=== PATIENT | male | born 1945 | race Asian ===

== ENCOUNTER → 2018-04-07 | Outpatient (CLI) | payer MEDICARE, MEDICAID ==
[~2018-04-07] MED LIST: FLUO-126 PO; FLUT16H NASAL; OLAN7.5T2 PO
== END | disposition home or self-care (01) ==
LOC: RADPV 11:30
PROVIDERS: ATTEND Internal Medicine
DX: J43.9 Emphysema, unspecified (principal); R91.1 Solitary pulmonary nodule; I70.0 Atherosclerosis of aorta; Z87.891 Personal history of nicotine dependence

== ENCOUNTER → 2018-08-10 | Outpatient (CLI) | payer MEDICARE, MEDICAID | END | disposition home or self-care (01) | LOC: RADPV 12:03 | PROVIDERS: ATTEND Internal Medicine | DX: R91.1 Solitary pulmonary nodule (principal) ==

== ENCOUNTER → 2018-09-01 | Outpatient (CLI) | payer MEDICARE, MEDICAID ==
[~2018-09-01] MED LIST changes: +IOVERSOL 320 MG/ML 100 ML VIAL ONE; +SODIUM CHLORIDE 0.9% 100 ML ONE
== END | disposition home or self-care (01) ==
LOC: RADMN 09:15
PROVIDERS: ATTEND Internal Medicine
DX: I70.0 Atherosclerosis of aorta (principal); J98.11 Atelectasis; J44.9 Chronic obstructive pulmonary disease, unspecified
CPT/HCPCS: 71260; J7050; Q9967

== ENCOUNTER → 2018-10-29 | Outpatient (CLI) | payer MEDICARE, MEDICAID ==
[~2018-10-29] MED LIST changes: -IOVERSOL 320 MG/ML 100 ML VIAL ONE; -SODIUM CHLORIDE 0.9% 100 ML ONE
== END | disposition home or self-care (01) ==
LOC: RADPV 08:56
PROVIDERS: ATTEND Internal Medicine
DX: K76.89 Other specified diseases of liver (principal)
CPT/HCPCS: 76700

== ENCOUNTER → 2019-01-28 | Outpatient (CLI) | payer MEDICARE, MEDICAID ==
[~2019-01-28] MED LIST changes: +IOVERSOL 350 MG/ML 100 ML VIAL ONE; +SODIUM CHLORIDE 0.9% 100 ML ONE
== END | disposition home or self-care (01) ==
LOC: RADMN 10:14
PROVIDERS: ATTEND Internal Medicine
DX: J47.9 Bronchiectasis, uncomplicated (principal)
CPT/HCPCS: 71260; J7050; Q9967

== ENCOUNTER 2019-06-17 09:47 | Emergency (ER) | payer MEDICARE, MEDICAID ==
[~2019-06-17] VITALS: Ht 167.6 cm; Wt 70.0 kg
[~2019-06-17 09:47] MED LIST changes: -FLUO-126 PO; +FLUO20CA36 PO; -IOVERSOL 350 MG/ML 100 ML VIAL ONE; -SODIUM CHLORIDE 0.9% 100 ML ONE
[2019-06-17 10:55] LABS: BASOPHILS % (AUTO) 1.2 % (0.0-2.0); EOSINOPHILS % (AUTO) 1.4 % (1.0-6.0); HEMATOCRIT 43.4 % (41-53); HEMOGLOBIN 14.3 g/dL (13.5-17.5); LYMPHOCYTES % (AUTO) 32.3 % (22.0-44.0); MEAN CORPUSCULAR HEMOGLOBIN 31.4 pg (26.0-34.0); MEAN CORPUSCULAR HGB CONC 32.9 G/dL (31.0-37.0); MEAN CORPUSCULAR VOLUME 96 fL (80-100); MONOCYTES # (AUTO) 0.3 K/uL (0.1-1.0); MONOCYTES % (AUTO) 9.1 % (2.0-9.0); NEUTROPHILS # (AUTO) 1.7 K/uL (1.8-7.7); PLATELET COUNT (AUTO) 202 K/uL (150-450); RED BLOOD CELL COUNT(AUTO) 4.54 MIL/uL (4.50-5.90); RED CELL DISTRIBUTION WIDTH 13.3 % (11.5-14.5)
[2019-06-17 11:08] LABS: ANION GAP 3 mmol/L (8-16); CALCIUM, TOTAL 9.1 mg/dL (8.8-10.5); CARBON DIOXIDE 31 mmol/L (22-29); CHLORIDE 102 mmol/L (98-107); CREATININE 0.93 mg/dL (0.60-1.30); GLOMERULAR FILTR. RATE CALC > 60 mL/min (>60); GLUCOSE,RANDOM 140 mg/dL (70-110); POTASSIUM 3.9 mmol/L (3.5-5.1); SODIUM SERUM 136 mmol/L (136-145); UREA NITROGEN, BLOOD 10 mg/dL (7-18)
[2019-06-17 11:15] LABS: ALANINE AMINOTRANSFERASE 20 U/L (12-78); ALBUMIN 3.7 g/dL (3.4-5.0); ALKALINE PHOSPHATASE 54 U/L (46-116); ASPARTATE AMINOTRANSFERASE 16 U/L (15-37); BILIRUBIN,TOTAL 1.6 mg/dL (0.1-1.0); TOTAL PROTEIN, SERUM 7.1 g/dL (6.4-8.2)
[2019-06-17] MEDS ORDERED: ACETAMINOPHEN 500 MG TABLET PO ONE (11:30)
[2019-06-17 11:49] LABS: AMPHET/METH SCREEN,URINE NEGATIVE (NEGATIVE); BARBITURATE SCREEN, URINE NEGATIVE (NEGATIVE); BENZODIAZEPINES SCREEN,URINE NEGATIVE (NEGATIVE); CANNABINOID SCREEN,URINE NEGATIVE (NEGATIVE); COCAINE SCREEN,URINE NEGATIVE (NEGATIVE); METHADONE SCREEN, URINE NEGATIVE (NEGATIVE); OPIATE SCREEN,URINE NEGATIVE (NEGATIVE)
[2019-06-17 11:53] LABS: PHENCYCLIDINE SCREEN,URINE NEGATIVE (NEGATIVE)
[2019-06-17 12:34] VITALS: BP 117/70
== END 2019-06-17 12:50 | disposition home or self-care (01) ==
LOC: EMS 09:51
DX: M79.675 Pain in left toe(s) (principal); E11.9 Type 2 diabetes mellitus without complications; F32.9 Major depressive disorder, single episode, unspecified
CPT/HCPCS: 36415; 73660; 80053; 80307; 85025; 99284; G0480

== ENCOUNTER 2019-07-07 10:47 | Emergency (ER) | payer MEDICARE, MEDICAID ==
[~2019-07-07] VITALS: Ht 167.6 cm; Wt 76.8 kg
[2019-07-07] MEDS ORDERED: MECLIZINE HCL 25 MG TABLET PO ONE (11:30)
[2019-07-07 11:48] LABS: EOSINOPHILS % (AUTO) 1.5 % (1.0-6.0); HEMATOCRIT 41.8 % (41-53); HEMOGLOBIN 13.7 g/dL (13.5-17.5); LYMPHOCYTES % (AUTO) 36.7 % (22.0-44.0); MEAN CORPUSCULAR HEMOGLOBIN 31.2 pg (26.0-34.0); MEAN CORPUSCULAR HGB CONC 32.8 G/dL (31.0-37.0); MEAN CORPUSCULAR VOLUME 95 fL (80-100); MONOCYTES # (AUTO) 0.3 K/uL (0.1-1.0); MONOCYTES % (AUTO) 12.7 % (2.0-9.0); NEUTROPHILS # (AUTO) 1.3 K/uL (1.8-7.7); NEUTROPHILS % (AUTO) 48.1 % (40.0-70.0); PLATELET COUNT (AUTO) 200 K/uL (150-450); RED CELL DISTRIBUTION WIDTH 13.2 % (11.5-14.5)
[2019-07-07 11:50] LABS: GLUCOSE,POINT OF CARE 115 MG/DL (70-110)
[2019-07-07 12:00] LABS: ANION GAP 7 mmol/L (8-16); CALCIUM, TOTAL 8.9 mg/dL (8.8-10.5); CARBON DIOXIDE 29 mmol/L (22-29); CHLORIDE 105 mmol/L (98-107); CREATININE 0.77 mg/dL (0.60-1.30); GLUCOSE,RANDOM 99 mg/dL (70-110); POTASSIUM 3.8 mmol/L (3.5-5.1); SODIUM SERUM 141 mmol/L (136-145); UREA NITROGEN, BLOOD 16 mg/dL (7-18)
[2019-07-07 12:02] LABS: GLOMERULAR FILTR. RATE CALC > 60 mL/min (>60)
[2019-07-07 12:12] LABS: ALANINE AMINOTRANSFERASE 27 U/L (12-78); ALBUMIN 3.8 g/dL (3.4-5.0); ALKALINE PHOSPHATASE 52 U/L (46-116); ASPARTATE AMINOTRANSFERASE 18 U/L (15-37); BILIRUBIN,TOTAL 2.4 mg/dL (0.1-1.0); TOTAL PROTEIN, SERUM 6.9 g/dL (6.4-8.2)
[2019-07-07 13:00] VITALS: BP 112/79
== END 2019-07-07 13:02 | disposition home or self-care (01) ==
LOC: EMS 10:49
DX: R42 Dizziness and giddiness (principal); E11.9 Type 2 diabetes mellitus without complications; F32.9 Major depressive disorder, single episode, unspecified; Z79.899 Other long term (current) drug therapy

== ENCOUNTER 2019-07-08 09:40 | Emergency (ER) | payer MEDICARE, MEDICAID ==
[~2019-07-08] VITALS: Ht 165.1 cm; Wt 61.4 kg
[2019-07-08 09:42] VITALS: BP 118/76
[2019-07-08 14:06] LABS: GLUCOSE,POINT OF CARE 113 MG/DL (70-110)
== END 2019-07-08 11:03 | disposition home or self-care (01) ==
LOC: EMS 09:41
DX: Z76.0 Encounter for issue of repeat prescription (principal); R42 Dizziness and giddiness; F32.9 Major depressive disorder, single episode, unspecified; E11.9 Type 2 diabetes mellitus without complications

== ENCOUNTER 2019-07-26 13:55 | Emergency (ER) | payer MEDICARE, MEDICAID ==
[~2019-07-26] VITALS: Ht 167.6 cm; Wt 64.1 kg
[2019-07-26 13:56] VITALS: BP 98/58
[2019-07-26 14:14] LABS: GLUCOSE,POINT OF CARE 121 MG/DL (70-110)
== END 2019-07-26 16:41 | disposition left against medical advice (07) ==
LOC: EMS 13:58
DX: R51 Headache (principal); Z53.21 Procedure and treatment not carried out due to patient leaving prior to being seen by health care provider

== ENCOUNTER 2019-07-28 14:26 | Emergency (ER) | payer MEDICARE, MEDICAID ==
[~2019-07-28] VITALS: Ht 167.6 cm; Wt 61.4 kg
[2019-07-28] MEDS ORDERED: MECLIZINE HCL 25 MG TABLET PO ONE (16:15)
[2019-07-28 16:21] LABS: BASOPHILS % (AUTO) 0.8 % (0.0-2.0); EOSINOPHILS % (AUTO) 0.5 % (1.0-6.0); HEMOGLOBIN 13.9 g/dL (13.5-17.5); LYMPHOCYTES # (AUTO) 0.9 K/uL (1.0-4.8); MEAN CORPUSCULAR HEMOGLOBIN 31.8 pg (26.0-34.0); MEAN CORPUSCULAR HGB CONC 33.1 G/dL (31.0-37.0); MEAN CORPUSCULAR VOLUME 96 fL (80-100); MONOCYTES # (AUTO) 0.3 K/uL (0.1-1.0); MONOCYTES % (AUTO) 9.6 % (2.0-9.0); NEUTROPHILS # (AUTO) 2.1 K/uL (1.8-7.7); NEUTROPHILS % (AUTO) 63.1 % (40.0-70.0); PLATELET COUNT (AUTO) 177 K/uL (150-450); RED BLOOD CELL COUNT(AUTO) 4.38 MIL/uL (4.50-5.90)
[2019-07-28 16:32] LABS: ANION GAP 6 mmol/L (8-16); CALCIUM, TOTAL 9.2 mg/dL (8.8-10.5); CARBON DIOXIDE 31 mmol/L (22-29); CHLORIDE 104 mmol/L (98-107); CREATININE 0.79 mg/dL (0.60-1.30); GLOMERULAR FILTR. RATE CALC > 60 mL/min (>60); GLUCOSE,RANDOM 97 mg/dL (70-110); SODIUM SERUM 141 mmol/L (136-145); UREA NITROGEN, BLOOD 16 mg/dL (7-18)
[2019-07-28 16:39] LABS: ALANINE AMINOTRANSFERASE 19 U/L (12-78); ALBUMIN 4.1 g/dL (3.4-5.0); ALKALINE PHOSPHATASE 51 U/L (46-116); ASPARTATE AMINOTRANSFERASE 18 U/L (15-37); TOTAL PROTEIN, SERUM 7.4 g/dL (6.4-8.2)
[2019-07-28 17:10] LABS: APPEARANCE,URINE CLEAR (CLEAR); BILIRUBIN,URINE NEGATIVE (NEGATIVE); GLUCOSE, URINE (UA) NEGATIVE (NEGATIVE); KETONES,URINE NEGATIVE (NEGATIVE); LEUKOCYTE ESTERASE ,URINE NEGATIVE (NEGATIVE); NITRATE,URINE NEGATIVE (NEGATIVE); OCCULT BLOOD,URINE NEGATIVE (NEGATIVE); PH,URINE 6.5 (5.0-8.0); PROTEIN,URINE NEGATIVE (NEGATIVE)
[2019-07-28 17:17] LABS: BACTERIA,URINE Rare /HPF (None Seen); RBC,URINE 0-2 /HPF (0-2); SQUAMOUS EPITHELIAL CELL,UR Rare /LPF (None Seen); WBC,URINE None Seen /HPF (0-5)
[2019-07-28 17:57] VITALS: BP 135/78
== END 2019-07-28 18:30 | disposition home or self-care (01) ==
LOC: EMS 14:33
DX: R42 Dizziness and giddiness (principal); F32.9 Major depressive disorder, single episode, unspecified; E11.9 Type 2 diabetes mellitus without complications
CPT/HCPCS: 70450; 93005

== ENCOUNTER 2020-05-29 10:29 | Emergency (ER) | payer MEDICARE, MEDICAID ==
[~2020-05-29] VITALS: Ht 162.6 cm; Wt 54.5 kg
[~2020-05-29 10:29] MED LIST changes: +ASPI-1450 PO; -FLUT16H NASAL; +TAMS-13 PO
[2020-05-29 12:36] LABS: BASOPHILS % (AUTO) 1.1 % (0.0-2.0); EOSINOPHILS % (AUTO) 0.3 % (1.0-6.0); HEMATOCRIT 40.2 % (41-53); HEMOGLOBIN 13.4 g/dL (13.5-17.5); LYMPHOCYTES # (AUTO) 0.6 K/uL (1.0-4.8); LYMPHOCYTES % (AUTO) 26.9 % (22.0-44.0); MEAN CORPUSCULAR HGB CONC 33.4 G/dL (31.0-37.0); MEAN CORPUSCULAR VOLUME 96 fL (80-100); MONOCYTES # (AUTO) 0.3 K/uL (0.1-1.0); MONOCYTES % (AUTO) 14.6 % (2.0-9.0); NEUTROPHILS # (AUTO) 1.2 K/uL (1.8-7.7); NEUTROPHILS % (AUTO) 57.1 % (40.0-70.0); PLATELET COUNT (AUTO) 170 K/uL (150-450); RED BLOOD CELL COUNT(AUTO) 4.19 MIL/uL (4.50-5.90)
[2020-05-29 12:44] LABS: ANION GAP 6 mmol/L (8-16); CALCIUM, TOTAL 8.9 mg/dL (8.8-10.5); CARBON DIOXIDE 30 mmol/L (22-29); CHLORIDE 103 mmol/L (98-107); CREATININE 0.86 mg/dL (0.60-1.30); GLUCOSE,RANDOM 128 mg/dL (70-110); SODIUM SERUM 139 mmol/L (136-145); UREA NITROGEN, BLOOD 15 mg/dL (7-18)
[2020-05-29 12:49] LABS: ALANINE AMINOTRANSFERASE 26 U/L (12-78); ALBUMIN 4.2 g/dL (3.4-5.0); ALKALINE PHOSPHATASE 59 U/L (46-116); ASPARTATE AMINOTRANSFERASE 21 U/L (15-37); BILIRUBIN,TOTAL 0.8 mg/dL (0.1-1.0); TOTAL PROTEIN, SERUM 7.1 g/dL (6.4-8.2)
[2020-05-29 12:53] LABS: GLOMERULAR FILTR. RATE CALC > 60 mL/min (>60)
[2020-05-29 14:12] VITALS: BP 110/70
== END 2020-05-29 14:44 | disposition home or self-care (01) ==
LOC: EMS 11:01
DX: U07.1 COVID-19 (principal); R51.9 Headache, unspecified; R42 Dizziness and giddiness; F32.9 Major depressive disorder, single episode, unspecified; E11.9 Type 2 diabetes mellitus without complications; Z79.82 Long term (current) use of aspirin
CPT/HCPCS: 70450; 82948; 93005; 99285; 71045-TC

== ENCOUNTER 2020-06-14 11:11 | Emergency (ER) | payer MEDICARE, MEDICAID ==
[~2020-06-14] VITALS: Ht 167.6 cm; Wt 61.4 kg
[2020-06-14 11:21] VITALS: BP 120/75
== END 2020-06-14 12:36 | disposition home or self-care (01) ==
LOC: EMS 11:39
DX: B35.1 Tinea unguium (principal)
CPT/HCPCS: 99281; Z7502

== ENCOUNTER 2020-07-12 10:51 | Emergency (ER) | payer MEDICARE, MEDICAID ==
[~2020-07-12] VITALS: Ht 160 cm; Wt 56.8 kg
[2020-07-12] MEDS ORDERED: IBUPROFEN 800 MG TABLET PO ONE (12:30)
[2020-07-12 12:42] LABS: BASOPHILS % (AUTO) 0.9 % (0.0-2.0); EOSINOPHILS % (AUTO) 0.5 % (1.0-6.0); HEMATOCRIT 37.6 % (41-53); HEMOGLOBIN 12.6 g/dL (13.5-17.5); LYMPHOCYTES # (AUTO) 0.9 K/uL (1.0-4.8); LYMPHOCYTES % (AUTO) 27.5 % (22.0-44.0); MEAN CORPUSCULAR HEMOGLOBIN 32.1 pg (26.0-34.0); MEAN CORPUSCULAR HGB CONC 33.6 G/dL (31.0-37.0); MEAN CORPUSCULAR VOLUME 95 fL (80-100); MONOCYTES # (AUTO) 0.3 K/uL (0.1-1.0); NEUTROPHILS # (AUTO) 2.2 K/uL (1.8-7.7); NEUTROPHILS % (AUTO) 63.1 % (40.0-70.0); PLATELET COUNT (AUTO) 178 K/uL (150-450); RED BLOOD CELL COUNT(AUTO) 3.94 MIL/uL (4.50-5.90); RED CELL DISTRIBUTION WIDTH 13.7 % (11.5-14.5)
[2020-07-12 12:56] LABS: ANION GAP 8 mmol/L (8-16); CALCIUM, TOTAL 8.8 mg/dL (8.8-10.5); CARBON DIOXIDE 28 mmol/L (22-29); CHLORIDE 107 mmol/L (98-107); CREATININE 0.74 mg/dL (0.60-1.30); GLUCOSE,RANDOM 97 mg/dL (70-110); POTASSIUM 3.9 mmol/L (3.5-5.1); SODIUM SERUM 143 mmol/L (136-145); UREA NITROGEN, BLOOD 15 mg/dL (7-18)
[2020-07-12 13:01] LABS: ALANINE AMINOTRANSFERASE 32 U/L (12-78); ALBUMIN 3.7 g/dL (3.4-5.0); ALKALINE PHOSPHATASE 58 U/L (46-116); ASPARTATE AMINOTRANSFERASE 22 U/L (15-37); BILIRUBIN,TOTAL 1.9 mg/dL (0.1-1.0); TOTAL PROTEIN, SERUM 6.9 g/dL (6.4-8.2)
[2020-07-12 13:02] LABS: GLOMERULAR FILTR. RATE CALC > 60 mL/min (>60)
[2020-07-12 13:45] VITALS: BP 124/74
== END 2020-07-12 14:00 | disposition home or self-care (01) ==
LOC: EMS 10:57
DX: R51.9 Headache, unspecified (principal); J06.9 Acute upper respiratory infection, unspecified
CPT/HCPCS: 99284; 36415-L1; 36415-TC; 71045-TC

== ENCOUNTER 2023-01-24 13:46 | Emergency (ER) | payer MEDICARE, MEDICAID ==
[~2023-01-24] VITALS: Ht 170.2 cm; Wt 61.4 kg
[~2023-01-24 13:46] MED LIST changes: +FINA-27 PO; +MECL-302 PO; -OLAN7.5T2 PO; +OLAN7.5T22 PO; -TAMS-13 PO
[2023-01-24 13:51] VITALS: BP 126/55; PULSE 75; RESP 16; TEMP 98.3
[2023-01-24] MEDS ORDERED: IBUP-1554 PO (15:51)
[2023-01-24] MEDS ORDERED: IBUPROFEN 600 MG TABLET PO ONE (16:00)
== END 2023-01-24 16:06 | disposition home or self-care (01) ==
LOC: EMS 13:46
DX: M25.531 Pain in right wrist (principal); F32.A Depression, unspecified; I10 Essential (primary) hypertension; Z98.890 Other specified postprocedural states
CPT/HCPCS: 99283

== ENCOUNTER 2023-04-27 11:08 | Emergency (ER) | payer MEDICARE, MEDICAID ==
[~2023-04-27] VITALS: Ht 167.6 cm; Wt 59.1 kg
[~2023-04-27 11:08] MED LIST changes: -ASPI-1450 PO; -FINA-27 PO; -FLUO20CA36 PO; +IBUP-1554 PO; -MECL-302 PO; -OLAN7.5T22 PO
[2023-04-27 11:32] VITALS: TEMP 98
[2023-04-27] MEDS ORDERED: TERA5CAP PO (11:39)
[2023-04-27] MEDS ORDERED: RAMI1.258 PO (11:39)
[2023-04-27 11:59] LABS: BASOPHILS % (AUTO) 0.9 % (0.0-2.0); EOSINOPHILS % (AUTO) 0.7 % (1.0-6.0); HEMATOCRIT 38.4 % (41-53); HEMOGLOBIN 12.6 g/dL (13.5-17.5); LYMPHOCYTES # (AUTO) 0.8 K/uL (1.0-4.8); LYMPHOCYTES % (AUTO) 20.4 % (22.0-44.0); MEAN CORPUSCULAR HEMOGLOBIN 31.7 pg (26.0-34.0); MEAN CORPUSCULAR HGB CONC 32.8 G/dL (31.0-37.0); MEAN CORPUSCULAR VOLUME 97 fL (80-100); MONOCYTES # (AUTO) 0.4 K/uL (0.1-1.0); MONOCYTES % (AUTO) 9.6 % (2.0-9.0); NEUTROPHILS # (AUTO) 2.6 K/uL (1.8-7.7); NEUTROPHILS % (AUTO) 68.4 % (40.0-70.0); PLATELET COUNT (AUTO) 191 K/uL (150-450); RED BLOOD CELL COUNT(AUTO) 3.96 MIL/uL (4.50-5.90); RED CELL DISTRIBUTION WIDTH 13.5 % (11.5-14.5); WHITE BLOOD COUNT (AUTO) 3.9 K/uL (4.5-11.0)
[2023-04-27 12:04] LABS: ANION GAP 8 mmol/L (8-16); CALCIUM, TOTAL 8.8 mg/dL (8.8-10.5); CARBON DIOXIDE 26 mmol/L (22-29); CHLORIDE 106 mmol/L (98-107); CREATININE 0.75 mg/dL (0.60-1.30); GLOMERULAR FILTR. RATE CALC > 60 mL/min (>60); GLUCOSE,RANDOM 117 mg/dL (70-110); POTASSIUM 4.1 mmol/L (3.5-5.1); SODIUM SERUM 140 mmol/L (136-145); TROPONIN I-HIGH SENSITIVITY 11 ng/L (<76); UREA NITROGEN, BLOOD 19 mg/dL (7-18)
[2023-04-27 12:09] LABS: ALANINE AMINOTRANSFERASE 19 U/L (12-78); ALBUMIN 3.4 g/dL (3.4-5.0); ALKALINE PHOSPHATASE 55 U/L (46-116); ASPARTATE AMINOTRANSFERASE 18 U/L (15-37); BILIRUBIN,TOTAL 1.4 mg/dL (0.1-1.0); TOTAL PROTEIN, SERUM 6.2 g/dL (6.4-8.2)
[2023-04-27] MEDS ORDERED: MAGNESIUM HYDROXIDE SUSPENSION 30 ML UDCUP PO PRN (12:30)
[2023-04-27] MEDS ORDERED: ACETAMINOPHEN 325 MG TABLET PO PRN (12:30)
[2023-04-27 15:34] VITALS: BP 132/84; PULSE 70; RESP 16
[2023-04-27] MEDS ORDERED: HEPARIN SODIUM,PORCINE 5,000 UNITS/ML VIAL SQ SCH (16:00)
[2023-04-28] MEDS ORDERED: FAMOTIDINE 20 MG TABLET PO SCH (09:00)
== END 2023-04-27 20:25 | disposition left against medical advice (07) ==
LOC: EMS 11:17 → UNDOADMIN 15:38 → AHU 15:38 → EMS 20:25 → AHU 20:25
DX: R55 Syncope and collapse (principal); I10 Essential (primary) hypertension; F32.A Depression, unspecified
CPT/HCPCS: 99285; 93306; 70450; 71045; 80053; 84484; 85025; 36415; 93005; 96372; J1644; G0378

== ENCOUNTER 2023-08-17 08:04 | Emergency (ER) | payer MEDICARE, MEDICAID ==
[~2023-08-17] VITALS: Ht 167.6 cm; Wt 54.5 kg
[~2023-08-17 08:04] MED LIST changes: +RAMI1.258 PO; +TERA5CAP PO
[2023-08-17 08:09] VITALS: BP 144/72; PULSE 72; RESP 16; TEMP 97.6
[2023-08-17] MEDS ORDERED: SERT-439 PO (08:13)
[2023-08-17] MEDS ORDERED: AMIT25TA9 PO (08:13)
[2023-08-17] MEDS: ACETAMINOPHEN 500 MG TABLET PO ONE (09:19)
[2023-08-17] MEDS: MECLIZINE HCL 25 MG TABLET PO ONE (09:19)
[2023-08-17 09:23] LABS: HEMATOCRIT 46.1 % (41-53); HEMOGLOBIN 15.1 g/dL (13.5-17.5); LYMPHOCYTES # (AUTO) 0.7 K/uL (1.0-4.8); LYMPHOCYTES % (AUTO) 20.8 % (22.0-44.0); MEAN CORPUSCULAR HEMOGLOBIN 31.3 pg (26.0-34.0); MEAN CORPUSCULAR HGB CONC 32.7 G/dL (31.0-37.0); MEAN CORPUSCULAR VOLUME 96 fL (80-100); MONOCYTES # (AUTO) 0.3 K/uL (0.1-1.0); MONOCYTES % (AUTO) 8.6 % (2.0-9.0); NEUTROPHILS # (AUTO) 2.3 K/uL (1.8-7.7); NEUTROPHILS % (AUTO) 68.6 % (40.0-70.0); PLATELET COUNT (AUTO) 196 K/uL (150-450); RED BLOOD CELL COUNT(AUTO) 4.82 MIL/uL (4.50-5.90); RED CELL DISTRIBUTION WIDTH 14.1 % (11.5-14.5); WHITE BLOOD COUNT (AUTO) 3.3 K/uL (4.5-11.0)
[2023-08-17 09:32] LABS: ANION GAP 7 mmol/L (8-16); CALCIUM, TOTAL 9.1 mg/dL (8.8-10.5); CARBON DIOXIDE 31 mmol/L (22-29); CHLORIDE 102 mmol/L (98-107); CREATININE 0.71 mg/dL (0.60-1.30); GLOMERULAR FILTR. RATE CALC > 60 mL/min (>60); GLUCOSE,RANDOM 87 mg/dL (70-110); POTASSIUM 3.8 mmol/L (3.5-5.1); SODIUM SERUM 139 mmol/L (136-145); UREA NITROGEN, BLOOD 14 mg/dL (7-18)
[2023-08-17 09:42] LABS: TROPONIN I-HIGH SENSITIVITY 4 ng/L (<76)
[2023-08-17] MEDS ORDERED: MECL-302 PO (09:47)
[2023-08-17] MEDS ORDERED: ACET-3385 PO (09:47)
== END 2023-08-17 10:55 | disposition home or self-care (01) ==
LOC: EMS 08:09
DX: R51.9 Headache, unspecified (principal); F32.A Depression, unspecified; I10 Essential (primary) hypertension; Z98.890 Other specified postprocedural states
CPT/HCPCS: 80048; 84484; 85025; 93005; 99284

== ENCOUNTER 2023-11-19 09:38 | Emergency (ER) | payer MEDICARE, MEDICAID ==
[~2023-11-19] VITALS: Ht 170.2 cm; Wt 65.9 kg
[~2023-11-19 09:38] MED LIST changes: +ACET-3385 PO; +AMIT25TA9 PO; -IBUP-1554 PO; +MECL-302 PO; -RAMI1.258 PO; +SERT-439 PO; -TERA5CAP PO
[2023-11-19 09:55] VITALS: TEMP 98.4
[2023-11-19 13:12] VITALS: BP 137/74; PULSE 60; RESP 18
== END 2023-11-19 13:15 | disposition home or self-care (01) ==
LOC: EMS 09:38
DX: H53.8 Other visual disturbances (principal); F32.A Depression, unspecified; I10 Essential (primary) hypertension; Z98.890 Other specified postprocedural states
CPT/HCPCS: 99282; Z7502

== ENCOUNTER 2024-05-10 13:54 | Emergency (ER) | payer MEDICARE, MEDICAID ==
[~2024-05-10] VITALS: Ht 170.2 cm; Wt 65.9 kg
[2024-05-10 14:01] VITALS: TEMP 97.6
[2024-05-10] MEDS ORDERED: ACET-66 PO (16:12)
[2024-05-10] MEDS ORDERED: DOXY-354 PO (16:36)
[2024-05-10 18:30] VITALS: BP 120/68; PULSE 62; RESP 18; O2SAT 98
== END 2024-05-10 18:31 | disposition home or self-care (01) ==
LOC: EMS 14:07
DX: L72.3 Sebaceous cyst (principal); I83.91 Asymptomatic varicose veins of right lower extremity; E11.9 Type 2 diabetes mellitus without complications; F32.A Depression, unspecified; I10 Essential (primary) hypertension
CPT/HCPCS: 10160; 99283; 99284

== ENCOUNTER 2024-06-15 14:29 | Emergency (ER) | payer MEDICARE, MEDICAID ==
[~2024-06-15] VITALS: Ht 167.6 cm; Wt 63.6 kg
[~2024-06-15 14:29] MED LIST changes: -ACET-3385 PO; +ACET-66 PO; -AMIT25TA9 PO; +DOXY-354 PO; -MECL-302 PO; -SERT-439 PO
[2024-06-15 15:15] VITALS: TEMP 98
[2024-06-15 15:43] LABS: BASOPHILS % (AUTO) 1.2 % (0.0-2.0); EOSINOPHILS % (AUTO) 1.3 % (1.0-6.0); HEMATOCRIT 39.8 % (41-53); LYMPHOCYTES # (AUTO) 0.7 K/uL (1.0-4.8); LYMPHOCYTES % (AUTO) 23.8 % (22.0-44.0); MEAN CORPUSCULAR HEMOGLOBIN 31.5 pg (26.0-34.0); MEAN CORPUSCULAR HGB CONC 32.6 G/dL (31.0-37.0); MEAN CORPUSCULAR VOLUME 97 fL (80-100); MONOCYTES # (AUTO) 0.3 K/uL (0.1-1.0); MONOCYTES % (AUTO) 8.6 % (2.0-9.0); NEUTROPHILS # (AUTO) 1.9 K/uL (1.8-7.7); NEUTROPHILS % (AUTO) 65.1 % (40.0-70.0); PLATELET COUNT (AUTO) 169 K/uL (150-450); RED BLOOD CELL COUNT(AUTO) 4.11 MIL/uL (4.50-5.90); RED CELL DISTRIBUTION WIDTH 13.7 % (11.5-14.5); WHITE BLOOD COUNT (AUTO) 2.9 K/uL (4.5-11.0)
[2024-06-15 15:53] LABS: ANION GAP 8 mmol/L (8-16); CALCIUM, TOTAL 9.1 mg/dL (8.8-10.5); CARBON DIOXIDE 28 mmol/L (22-29); CHLORIDE 107 mmol/L (98-107); CREATININE 0.62 mg/dL (0.60-1.30); GLOMERULAR FILTR. RATE CALC > 60 mL/min (>60); GLUCOSE,RANDOM 93 mg/dL (70-110); POTASSIUM 4.3 mmol/L (3.5-5.1); SODIUM SERUM 143 mmol/L (136-145); UREA NITROGEN, BLOOD 18 mg/dL (7-18)
[2024-06-15 15:57] LABS: ALBUMIN 3.4 g/dL (3.4-5.0); BILIRUBIN,DIRECT 0.2 mg/dL (0.00-0.20); BILIRUBIN,TOTAL 0.9 mg/dL (0.1-1.0)
[2024-06-15 16:03] LABS: CREATINE KINASE, TOTAL ONLY 156 U/L (39-308); TROPONIN I-HIGH SENSITIVITY 5 ng/L (<76)
[2024-06-15 16:07] LABS: B-TYPE NATRIURETIC PEPTIDE 38 pg/mL (0-100); RBC MORPHOLOGY COMMENT NORMAL RBC MORPH
[2024-06-15 16:16] VITALS: BP 133/75; PULSE 77; RESP 17; O2SAT 98
== END 2024-06-15 18:03 | disposition left against medical advice (07) ==
LOC: EMS 14:29 → EDH 17:22 → UNDOADMIN 17:22 → UNDODISIN 18:01 → EMS 18:03
DX: R55 Syncope and collapse (principal); H53.8 Other visual disturbances
CPT/HCPCS: 70450; 70486; 71045; 72125; 80048; 80076; 82550; 83735; 83880; 84484; 85025; 93005; 99285; G0378; 36415-L1; 36415-TC

== ENCOUNTER 2024-07-06 12:28 | Inpatient (IN) | payer MEDICARE, MEDICAID ==
[~2024-07-06] VITALS: Ht 167.6 cm; Wt 55.2 kg
[2024-07-06 13:10] LABS: GLUCOMETER DEV NAME(LOC) ERT.6; GLUCOSE,POINT OF CARE 119 MG/DL (70-110)
[2024-07-06 13:50] LABS: EOSINOPHILS % (AUTO) 0.3 % (1.0-6.0); HEMATOCRIT 41.4 % (41-53); HEMOGLOBIN 13.2 g/dL (13.5-17.5); MEAN CORPUSCULAR HEMOGLOBIN 30.9 pg (26.0-34.0); MEAN CORPUSCULAR VOLUME 97 fL (80-100); MONOCYTES # (AUTO) 0.4 K/uL (0.1-1.0); MONOCYTES % (AUTO) 9.2 % (2.0-9.0); NEUTROPHILS # (AUTO) 2.5 K/uL (1.8-7.7); NEUTROPHILS % (AUTO) 64.5 % (40.0-70.0); PLATELET COUNT (AUTO) 177 K/uL (150-450); RED BLOOD CELL COUNT(AUTO) 4.28 MIL/uL (4.50-5.90); RED CELL DISTRIBUTION WIDTH 13.6 % (11.5-14.5); WHITE BLOOD COUNT (AUTO) 3.9 K/uL (4.5-11.0)
[2024-07-06 14:05] LABS: ANION GAP 2 mmol/L (8-16); CALCIUM, TOTAL 8.9 mg/dL (8.8-10.5); CARBON DIOXIDE 31 mmol/L (22-29); CHLORIDE 106 mmol/L (98-107); GLOMERULAR FILTR. RATE CALC > 60 mL/min (>60); GLUCOSE,RANDOM 112 mg/dL (70-110); POTASSIUM 4.4 mmol/L (3.5-5.1); SODIUM SERUM 139 mmol/L (136-145); UREA NITROGEN, BLOOD 24 mg/dL (7-18)
[2024-07-06 15:14] LABS: APPEARANCE,URINE CLEAR (CLEAR); BILIRUBIN,URINE NEGATIVE (NEGATIVE); COLOR,URINE LIGHT YELLOW (YELLOW); GLUCOSE, URINE (UA) NEGATIVE (NEGATIVE); KETONES,URINE NEGATIVE (NEGATIVE); LEUKOCYTE ESTERASE ,URINE NEGATIVE (NEGATIVE); NITRATE,URINE NEGATIVE (NEGATIVE); OCCULT BLOOD,URINE NEGATIVE (NEGATIVE); PH,URINE 5.5 (5.0-8.0); PROTEIN,URINE NEGATIVE (NEGATIVE); SPECIFIC GRAVITIY, URINE 1.013 (1.003-1.030); UROBILINOGEN,URINE <=1.0 mg/dL (<=1.0)
[2024-07-06 15:16] LABS: TROPONIN I-HIGH SENSITIVITY Less Than 4 ng/L (<76)
[2024-07-06 15:25] LABS: B-TYPE NATRIURETIC PEPTIDE 20 pg/mL (0-100)
[2024-07-06] MEDS ORDERED: MIRT-92 PO (15:28)
[2024-07-06] MEDS ORDERED: QUET25TA36 PO (15:28)
[2024-07-06] MEDS ORDERED: CALC-1271 PO (15:28)
[2024-07-06] MEDS ORDERED: TERA5CAP PO (15:28)
[2024-07-06] MEDS ORDERED: ROSU20TA98 PO (15:28)
[2024-07-06] MEDS ORDERED: MULT-1336 PO (15:28)
[2024-07-06] MEDS ORDERED: ONDANSETRON HCL 4 MG/2 ML VIAL IVP PRN (15:30)
[2024-07-06] MEDS ORDERED: ACETAMINOPHEN 325 MG TABLET PO PRN (15:30)
[2024-07-06 15:51] LABS: ALBUMIN 3.7 g/dL (3.4-5.0); BILIRUBIN,DIRECT 0.3 mg/dL (0.00-0.20); BILIRUBIN,TOTAL 1.8 mg/dL (0.1-1.0)
[2024-07-06 16:01] LABS: THYROID STIMULATING HORMONE 1.55 uIU/mL (0.36-3.74)
[2024-07-06] MEDS: SODIUM CHLORIDE 0.9% 1,000 ML IV ONE (16:07)
[2024-07-06] MEDS: HEPARIN SODIUM,PORCINE 5,000 UNITS/ML VIAL SQ SCH (16:13)
[2024-07-06] MEDS: DOCUSATE SODIUM 100 MG CAPSULE PO SCH (20:47)
[2024-07-06 21:24] VITALS: BP 113/60; PULSE 74; RESP 19; TEMP 98.1; O2SAT 97
[2024-07-06] MEDS: ZOLPIDEM TARTRATE 5 MG TABLET PO PRN (21:53)
[2024-07-07 00:38] VITALS: BP 105/70; PULSE 69; RESP 18; TEMP 97.7; O2SAT 97
[2024-07-07 04:30] VITALS: BP 108/71; PULSE 63; RESP 18; TEMP 98; O2SAT 98
[2024-07-07] MEDS ORDERED: FAMOTIDINE 20 MG TABLET PO SCH (09:00)
== END 2024-07-07 06:33 | disposition left against medical advice (07) | DRG 74 ==
LOC: EMS 12:30 → EDH 15:25 → 5S 20:51
PROVIDERS: ADMIT Internal Medicine; ATTEND Internal Medicine
DX: G90.89 Other disorders of autonomic nervous system (principal); F32.A Depression, unspecified; G47.00 Insomnia, unspecified; I10 Essential (primary) hypertension; E11.9 Type 2 diabetes mellitus without complications; Z53.29 Procedure and treatment not carried out because of patient's decision for other reasons
CPT/HCPCS: 70450; 71045; 80048; 80076; 81003; 82962; 83880; 84443; 84484; 85025; 93005; 93880; 99285; J1644; 36415-L1; 36415-TC

== ENCOUNTER 2024-07-08 14:46 | Emergency (ER) | payer MEDICARE, MEDICAID ==
[~2024-07-08] VITALS: Ht 167.6 cm; Wt 68.2 kg
[~2024-07-08 14:46] MED LIST changes: -ACET-66 PO; +CALC-1271 PO; -DOXY-354 PO; +MIRT-92 PO; +MULT-1336 PO; +QUET25TA36 PO; +ROSU20TA98 PO; +TERA5CAP PO
[2024-07-08 15:05] VITALS: BP 110/61; PULSE 72; RESP 18; TEMP 98.5; O2SAT 98
== END 2024-07-08 19:26 | disposition left against medical advice (07) ==
LOC: EMS 15:01
DX: R42 Dizziness and giddiness (principal); F32.A Depression, unspecified; G47.00 Insomnia, unspecified; Z53.21 Procedure and treatment not carried out due to patient leaving prior to being seen by health care provider

== ENCOUNTER 2024-07-12 15:40 | Emergency (ER) | payer MEDICARE, MEDICAID ==
[~2024-07-12] VITALS: Ht 167.6 cm; Wt 63.6 kg
[2024-07-12 15:51] VITALS: BP 110/66; PULSE 84; RESP 18; TEMP 98; O2SAT 99
[2024-07-12] MEDS ORDERED: MECL-302 PO (16:07)
[2024-07-12 17:58] LABS: BASOPHILS % (AUTO) 0.8 % (0.0-2.0); EOSINOPHILS % (AUTO) 0.8 % (1.0-6.0); HEMOGLOBIN 13.9 g/dL (13.5-17.5); LYMPHOCYTES # (AUTO) 0.7 K/uL (1.0-4.8); LYMPHOCYTES % (AUTO) 22.3 % (22.0-44.0); MEAN CORPUSCULAR HEMOGLOBIN 31.3 pg (26.0-34.0); MEAN CORPUSCULAR HGB CONC 32.3 G/dL (31.0-37.0); MEAN CORPUSCULAR VOLUME 97 fL (80-100); MONOCYTES # (AUTO) 0.3 K/uL (0.1-1.0); MONOCYTES % (AUTO) 8.7 % (2.0-9.0); NEUTROPHILS # (AUTO) 2.1 K/uL (1.8-7.7); NEUTROPHILS % (AUTO) 67.4 % (40.0-70.0); PLATELET COUNT (AUTO) 188 K/uL (150-450); RED BLOOD CELL COUNT(AUTO) 4.43 MIL/uL (4.50-5.90); RED CELL DISTRIBUTION WIDTH 13.7 % (11.5-14.5); WHITE BLOOD COUNT (AUTO) 3.1 K/uL (4.5-11.0)
[2024-07-12 18:04] LABS: ANION GAP 6 mmol/L (8-16); CARBON DIOXIDE 31 mmol/L (22-29); CHLORIDE 103 mmol/L (98-107); GLOMERULAR FILTR. RATE CALC > 60 mL/min (>60); GLUCOSE,RANDOM 92 mg/dL (70-110); POTASSIUM 4.5 mmol/L (3.5-5.1); SODIUM SERUM 140 mmol/L (136-145); UREA NITROGEN, BLOOD 19 mg/dL (7-18)
[2024-07-12 18:12] LABS: TROPONIN I-HIGH SENSITIVITY Less Than 4 ng/L (<76)
[2024-07-12] MEDS ORDERED: MECL-134 PO (19:36)
[2024-07-13] MEDS ORDERED: MELA1TAB28 PO (15:26)
== END 2024-07-12 19:45 | disposition home or self-care (01) ==
LOC: EMS 15:50
DX: R42 Dizziness and giddiness (principal); E11.9 Type 2 diabetes mellitus without complications; I10 Essential (primary) hypertension; F32.A Depression, unspecified; W19.XXXA Unspecified fall, initial encounter; Y93.89 Activity, other specified; Y92.89 Other specified places as the place of occurrence of the external cause; Y99.8 Other external cause status
CPT/HCPCS: 80048; 82962; 84484; 85025; 93005; 99284

== ENCOUNTER 2024-07-13 13:03 | Emergency (ER) | payer MEDICARE, MEDICAID ==
[~2024-07-13] VITALS: Ht 175.3 cm; Wt 63.0 kg
[~2024-07-13 13:03] MED LIST changes: +MECL-134 PO; +MECL-302 PO
[2024-07-13 13:37] VITALS: BP 144/76; PULSE 70; RESP 18; TEMP 97.7; O2SAT 99
[2024-07-13] MEDS ORDERED: MELA1TAB28 PO (15:26)
[2024-07-13] MEDS: LORazepam 1 MG TABLET PO ONE (15:31)
== END 2024-07-13 15:39 | disposition home or self-care (01) ==
LOC: EMS 13:09
DX: G47.00 Insomnia, unspecified (principal); R42 Dizziness and giddiness; E11.9 Type 2 diabetes mellitus without complications; I10 Essential (primary) hypertension; F32.A Depression, unspecified
CPT/HCPCS: 99283

== ENCOUNTER 2024-10-22 23:39 | Inpatient (IN) | payer MEDICARE, MEDICAID ==
[~2024-10-22] VITALS: Ht 165.1 cm; Wt 56.0 kg
[~2024-10-22 23:39] MED LIST changes: -MECL-302 PO; +MELA1TAB28 PO
[2024-10-23 01:05] VITALS: O2SAT 100
[2024-10-23 01:34] LABS: COVID AG,FIA SOURCE NASAL SWAB
[2024-10-23 01:35] LABS: PLATELET COUNT (AUTO) 195 K/uL (150-450); RED BLOOD CELL COUNT(AUTO) 4.21 MIL/uL (4.50-5.90); RED CELL DISTRIBUTION WIDTH 13.9 % (11.5-14.5); WHITE BLOOD COUNT (AUTO) 3.8 K/uL (4.5-11.0)
[2024-10-23 01:44] LABS: CALCIUM, TOTAL 8.5 mg/dL (8.8-10.5); CREATININE 0.56 mg/dL (0.60-1.30); GLOMERULAR FILTR. RATE CALC > 60 mL/min (>60); GLUCOSE,RANDOM 91 mg/dL (70-110); SODIUM SERUM 142 mmol/L (136-145); UREA NITROGEN, BLOOD 13 mg/dL (7-18)
[2024-10-23 01:58] LABS: SARS-COV2 (COVID) ANTIGEN,FIA Negative (Negative)
[2024-10-23] MEDS ORDERED: ZOLPIDEM TARTRATE 10 MG TABLET PO PRN (02:30)
[2024-10-23 03:20] VITALS: BP 132/74; PULSE 82; RESP 19; TEMP 98.1; O2SAT 98
[2024-10-23 06:04] LABS: APPEARANCE,URINE CLEAR (CLEAR); GLUCOSE, URINE (UA) NEGATIVE (NEGATIVE); LEUKOCYTE ESTERASE ,URINE NEGATIVE (NEGATIVE); NITRATE,URINE NEGATIVE (NEGATIVE); OCCULT BLOOD,URINE NEGATIVE (NEGATIVE); PH,URINE DRUG SCREEN 7.0 (5.0-8.0); SPECIFIC GRAVITIY, URINE 1.010 (1.003-1.030)
[2024-10-23 06:12] LABS: AMPHET/METH SCREEN,URINE NEGATIVE (NEGATIVE); BARBITURATE SCREEN, URINE NEGATIVE (NEGATIVE); CANNABINOID SCREEN,URINE NEGATIVE (NEGATIVE); COCAINE SCREEN,URINE NEGATIVE (NEGATIVE); METHADONE SCREEN, URINE NEGATIVE (NEGATIVE)
[2024-10-23 06:14] LABS: ALCOHOL, URINE DRUG SCREEN NEGATIVE (NEGATIVE)
[2024-10-23 08:59] VITALS: BP 129/75; PULSE 68; RESP 18; TEMP 98.3; O2SAT 96
[2024-10-23] MEDS ORDERED: DEXTROSE 50%-WATER 25 GM/50 ML SYRINGE IVP PRN (09:45)
[2024-10-23] MEDS: MULTIVITAMINS WITH MINERALS, THERAPEUTIC TABLET PO SCH (09:50)
[2024-10-23] MEDS ORDERED: MAGNESIUM HYDROXIDE SUSPENSION 30 ML UDCUP PO PRN (11:30)
[2024-10-23] MEDS ORDERED: MAG HYDROX/ALUMINUM HYD/SIMETH ES 30 ML SUSPENSION UDCUP PO PRN (11:30)
[2024-10-23] MEDS ORDERED: DOCUSATE SODIUM 100 MG CAPSULE PO PRN (11:30)
[2024-10-23] MEDS ORDERED: ONDANSETRON 4 MG TABLET PO PRN (11:30)
[2024-10-23] MEDS ORDERED: GuaiFENesin/D-METHORPHAN [SUGAR-FREE] 200-20MG/10 ML SYRUP UDCUP PO PRN (11:30)
[2024-10-23] MEDS ORDERED: PETROLATUM,WHITE 28 GM JELLY TP PRN (11:30)
[2024-10-23] MEDS ORDERED: ALBUTEROL SULFATE HFA 90 MCG/PUFF 8 GM INHALER IH PRN (11:30)
[2024-10-23] MEDS ORDERED: LOPERAMIDE HCL 2 MG CAPSULE PO PRN (11:30)
[2024-10-23] MEDS ORDERED: NICOTINE 14 MG/24 HOUR PATCH TD PRN (11:30)
[2024-10-23 12:01] LABS: GLUCOMETER DEV NAME(LOC) 3E.I 2; GLUCOSE,POINT OF CARE 106 MG/DL (70-110)
[2024-10-23] MEDS: CALCIUM OYSTER SHELL 250 MG-VIT D3 125 UNITS[3.125MCG] TABLET PO SCH (12:13)
[2024-10-23 17:50] LABS: GLUCOMETER DEV NAME(LOC) 3E.I 2; GLUCOSE,POINT OF CARE 89 MG/DL (70-110)
[2024-10-23 20:30] LABS: GLUCOMETER DEV NAME(LOC) 3EX.2; GLUCOSE,POINT OF CARE 102 MG/DL (70-110)
[2024-10-23] MEDS: ROSUVASTATIN CALCIUM 20 MG TABLET PO SCH (20:56)
[2024-10-23] MEDS: MIRTAZAPINE 15 MG TABLET PO SCH (20:56)
[2024-10-23] MEDS: MELATONIN 3 MG TABLET PO SCH (20:56)
[2024-10-23 21:00] VITALS: BP 135/66; PULSE 66; RESP 17; TEMP 98.4; O2SAT 99
[2024-10-24 06:20] LABS: GLUCOMETER DEV NAME(LOC) 3E.I 2; GLUCOSE,POINT OF CARE 99 MG/DL (70-110)
[2024-10-24 08:17] VITALS: BP 104/63; PULSE 69; RESP 16; TEMP 98.1; O2SAT 98
[2024-10-24 09:44] LABS: PLATELET COUNT (AUTO) 216 K/uL (150-450); RED BLOOD CELL COUNT(AUTO) 4.54 MIL/uL (4.50-5.90); RED CELL DISTRIBUTION WIDTH 13.9 % (11.5-14.5); WHITE BLOOD COUNT (AUTO) 3.4 K/uL (4.5-11.0)
[2024-10-24 10:13] LABS: ASPARTATE AMINOTRANSFERASE 19 U/L (15-37); CALCIUM, TOTAL 9.0 mg/dL (8.8-10.5); CHOL/HDL RATIO 2.2 (4.2-7.3); CREATININE 0.73 mg/dL (0.60-1.30); GLOMERULAR FILTR. RATE CALC > 60 mL/min (>60); GLUCOSE,RANDOM 96 mg/dL (70-110); LDL CHOL (CALC.) 65 mg/dL (0-130); SODIUM SERUM 143 mmol/L (136-145); TOTAL PROTEIN, SERUM 7.2 g/dL (6.4-8.2); UREA NITROGEN, BLOOD 19 mg/dL (7-18)
[2024-10-24 16:41] LABS: GLUCOMETER DEV NAME(LOC) 3E.I 2; GLUCOSE,POINT OF CARE 101 MG/DL (70-110)
[2024-10-24 16:55] VITALS: BP 92/69; PULSE 69; RESP 16; TEMP 97.9; O2SAT 100
[2024-10-24 16:57] VITALS: BP 97/67; PULSE 85
[2024-10-24] MEDS: MECLIZINE HCL 25 MG TABLET PO PRN (16:58)
[2024-10-24] MEDS: ACETAMINOPHEN 325 MG TABLET PO PRN (16:58)
[2024-10-24] MEDS: INSULIN LISPRO 100 UNITS/ML SQ PRN (18:17)
[2024-10-24 20:11] LABS: GLUCOMETER DEV NAME(LOC) 3EX.2; GLUCOSE,POINT OF CARE 129 MG/DL (70-110)
[2024-10-24 21:00] VITALS: BP 118/73; PULSE 82; RESP 18; TEMP 98.1; O2SAT 99
[2024-10-25 06:30] LABS: GLUCOMETER DEV NAME(LOC) 3E.I 2; GLUCOSE,POINT OF CARE 100 MG/DL (70-110)
[2024-10-25 08:47] VITALS: BP 94/62; PULSE 83; RESP 18; TEMP 97.6; O2SAT 100
[2024-10-25 11:36] LABS: GLUCOMETER DEV NAME(LOC) 3E.I 2; GLUCOSE,POINT OF CARE 113 MG/DL (70-110)
[2024-10-25 17:46] LABS: GLUCOMETER DEV NAME(LOC) 3E.I 2; GLUCOSE,POINT OF CARE 123 MG/DL (70-110)
[2024-10-25 20:58] VITALS: RESP 18
[2024-10-25 21:36] LABS: GLUCOMETER DEV NAME(LOC) 3E.I 2; GLUCOSE,POINT OF CARE 113 MG/DL (70-110)
[2024-10-26 05:50] LABS: GLUCOMETER DEV NAME(LOC) 3E.I 2; GLUCOSE,POINT OF CARE 101 MG/DL (70-110)
[2024-10-26 08:36] VITALS: BP 119/70; PULSE 71; RESP 17; TEMP 97.7; O2SAT 97
[2024-10-26 11:40] LABS: GLUCOMETER DEV NAME(LOC) 3E.I 2; GLUCOSE,POINT OF CARE 116 MG/DL (70-110)
[2024-10-26 17:30] LABS: GLUCOMETER DEV NAME(LOC) 3E.I 2; GLUCOSE,POINT OF CARE 83 MG/DL (70-110)
[2024-10-26 21:00] VITALS: BP 118/65; PULSE 80; RESP 18; TEMP 97.6; O2SAT 98
[2024-10-26 21:41] LABS: GLUCOMETER DEV NAME(LOC) 3E.I 2; GLUCOSE,POINT OF CARE 130 MG/DL (70-110)
[2024-10-27 07:01] LABS: GLUCOMETER DEV NAME(LOC) 3E.I 2; GLUCOSE,POINT OF CARE 93 MG/DL (70-110)
[2024-10-27 09:00] VITALS: BP 98/57; PULSE 66; RESP 17; TEMP 97.5; O2SAT 96
[2024-10-27 11:55] LABS: GLUCOMETER DEV NAME(LOC) 3E.I 2; GLUCOSE,POINT OF CARE 140 MG/DL (70-110)
[2024-10-27 14:34] VITALS: BP 123/63; PULSE 74; RESP 18; TEMP 97.5; O2SAT 96
[2024-10-27 17:36] LABS: GLUCOMETER DEV NAME(LOC) 3E.I 2; GLUCOSE,POINT OF CARE 134 MG/DL (70-110)
[2024-10-27 20:30] LABS: GLUCOMETER DEV NAME(LOC) 3E.I 2; GLUCOSE,POINT OF CARE 192 MG/DL (70-110)
[2024-10-27 21:13] VITALS: BP 122/71; PULSE 85; RESP 18; TEMP 97.8
[2024-10-28 06:06] LABS: GLUCOMETER DEV NAME(LOC) 3E.I 2; GLUCOSE,POINT OF CARE 102 MG/DL (70-110)
[2024-10-28 10:54] VITALS: BP 116/61; PULSE 78; RESP 18; TEMP 97.9; O2SAT 98
[2024-10-28 12:05] LABS: GLUCOMETER DEV NAME(LOC) 3E.I 2; GLUCOSE,POINT OF CARE 102 MG/DL (70-110)
[2024-10-28 17:30] LABS: GLUCOMETER DEV NAME(LOC) 3E.I 2; GLUCOSE,POINT OF CARE 110 MG/DL (70-110)
[2024-10-28 19:51] LABS: GLUCOMETER DEV NAME(LOC) 3EX.2; GLUCOSE,POINT OF CARE 110 MG/DL (70-110)
[2024-10-28 20:52] VITALS: BP 108/64; PULSE 74; RESP 18; TEMP 98.1
[2024-10-29 05:55] LABS: GLUCOMETER DEV NAME(LOC) 3E.I 2; GLUCOSE,POINT OF CARE 91 MG/DL (70-110)
[2024-10-29 09:00] VITALS: PULSE 67; RESP 16; TEMP 98.3
[2024-10-29 11:50] LABS: GLUCOMETER DEV NAME(LOC) 3E.I 2; GLUCOSE,POINT OF CARE 92 MG/DL (70-110)
[2024-10-29 17:36] LABS: GLUCOMETER DEV NAME(LOC) 3E.I 2; GLUCOSE,POINT OF CARE 112 MG/DL (70-110)
[2024-10-29 20:36] LABS: GLUCOMETER DEV NAME(LOC) 3EX.2; GLUCOSE,POINT OF CARE 132 MG/DL (70-110)
[2024-10-29 22:14] VITALS: RESP 18
[2024-10-30 11:14] VITALS: BP 128/74; PULSE 80; RESP 16; TEMP 97.8; O2SAT 99
[2024-10-30 12:11] LABS: GLUCOMETER DEV NAME(LOC) 3E.I 2; GLUCOSE,POINT OF CARE 81 MG/DL (70-110)
[2024-10-30 17:35] LABS: GLUCOMETER DEV NAME(LOC) 3E.I 2; GLUCOSE,POINT OF CARE 134 MG/DL (70-110)
[2024-10-30 19:36] LABS: GLUCOMETER DEV NAME(LOC) 3EX.2; GLUCOSE,POINT OF CARE 152 MG/DL (70-110)
[2024-10-30 20:27] VITALS: RESP 18
[2024-10-31 06:05] LABS: GLUCOMETER DEV NAME(LOC) 3E.I 2; GLUCOSE,POINT OF CARE 96 MG/DL (70-110)
[2024-10-31 08:00] VITALS: BP 112/71; PULSE 74; RESP 18; TEMP 97.6
[2024-10-31 12:06] LABS: GLUCOMETER DEV NAME(LOC) 3E.I 2; GLUCOSE,POINT OF CARE 113 MG/DL (70-110)
[2024-10-31 17:40] LABS: GLUCOMETER DEV NAME(LOC) 3E.I 2; GLUCOSE,POINT OF CARE 104 MG/DL (70-110)
[2024-10-31 19:51] LABS: GLUCOMETER DEV NAME(LOC) 3EX.2; GLUCOSE,POINT OF CARE 102 MG/DL (70-110)
[2024-10-31 21:18] VITALS: BP 121/68; PULSE 76; RESP 17; TEMP 98
[2024-11-01 06:15] LABS: GLUCOMETER DEV NAME(LOC) 3E.I 2; GLUCOSE,POINT OF CARE 105 MG/DL (70-110)
[2024-11-01 09:00] VITALS: BP 107/73; PULSE 84; RESP 17; TEMP 97.6
[2024-11-01 12:06] LABS: GLUCOMETER DEV NAME(LOC) 3E.I 2; GLUCOSE,POINT OF CARE 145 MG/DL (70-110)
[2024-11-01 17:55] LABS: GLUCOMETER DEV NAME(LOC) 3E.I 2; GLUCOSE,POINT OF CARE 128 MG/DL (70-110)
[2024-11-01 20:20] LABS: GLUCOMETER DEV NAME(LOC) 3E.I 2; GLUCOSE,POINT OF CARE 128 MG/DL (70-110)
[2024-11-01 20:35] VITALS: BP 107/63; PULSE 62; RESP 18; TEMP 98.7; O2SAT 97
[2024-11-02 06:11] LABS: GLUCOMETER DEV NAME(LOC) 3E.I 2; GLUCOSE,POINT OF CARE 101 MG/DL (70-110)
[2024-11-02 08:25] VITALS: BP 107/69; PULSE 79; RESP 18; TEMP 97; O2SAT 99
[2024-11-02 12:26] LABS: GLUCOMETER DEV NAME(LOC) 3E.I 2; GLUCOSE,POINT OF CARE 136 MG/DL (70-110)
[2024-11-02 17:20] LABS: GLUCOMETER DEV NAME(LOC) 3E.I 2; GLUCOSE,POINT OF CARE 144 MG/DL (70-110)
[2024-11-02 21:45] VITALS: BP 113/73; PULSE 72; RESP 18; TEMP 97.9; O2SAT 99
[2024-11-02 23:16] LABS: GLUCOMETER DEV NAME(LOC) 3E.I 2; GLUCOSE,POINT OF CARE 97 MG/DL (70-110)
[2024-11-03 07:15] LABS: GLUCOMETER DEV NAME(LOC) 3E.I 2; GLUCOSE,POINT OF CARE 101 MG/DL (70-110)
[2024-11-03 12:11] LABS: GLUCOMETER DEV NAME(LOC) 3E.I 2; GLUCOSE,POINT OF CARE 136 MG/DL (70-110)
[2024-11-03 14:18] VITALS: BP 117/81; PULSE 72; RESP 17; TEMP 98
[2024-11-03 21:55] LABS: GLUCOMETER DEV NAME(LOC) 3E.I 2; GLUCOSE,POINT OF CARE 152 MG/DL (70-110)
[2024-11-03 23:37] VITALS: BP 118/70; PULSE 75; RESP 18; TEMP 98.1; O2SAT 100
[2024-11-04 06:25] LABS: GLUCOMETER DEV NAME(LOC) 3E.I 2; GLUCOSE,POINT OF CARE 116 MG/DL (70-110)
[2024-11-04 08:00] VITALS: BP 122/73; PULSE 79; RESP 18; TEMP 97.7; O2SAT 98
[2024-11-04 11:55] LABS: GLUCOMETER DEV NAME(LOC) 3E.I 2; GLUCOSE,POINT OF CARE 114 MG/DL (70-110)
[2024-11-04 17:35] LABS: GLUCOMETER DEV NAME(LOC) 3E.I 2; GLUCOSE,POINT OF CARE 123 MG/DL (70-110)
[2024-11-04 20:25] LABS: GLUCOMETER DEV NAME(LOC) 3E.I 2; GLUCOSE,POINT OF CARE 108 MG/DL (70-110)
[2024-11-04 20:30] VITALS: BP 120/67; PULSE 73; RESP 18; TEMP 97.3; O2SAT 99
[2024-11-05 05:56] LABS: GLUCOMETER DEV NAME(LOC) 3EX.2; GLUCOSE,POINT OF CARE 98 MG/DL (70-110)
[2024-11-05 11:40] VITALS: BP 125/69; PULSE 78; RESP 18; TEMP 97.9; O2SAT 98
[2024-11-05 17:26] LABS: GLUCOMETER DEV NAME(LOC) 3E.I 2; GLUCOSE,POINT OF CARE 140 MG/DL (70-110)
[2024-11-05 20:00] VITALS: BP 130/72; PULSE 80; RESP 18; TEMP 97; O2SAT 100
[2024-11-05 20:10] LABS: GLUCOMETER DEV NAME(LOC) 3E.I 2; GLUCOSE,POINT OF CARE 140 MG/DL (70-110)
[2024-11-06 05:46] LABS: GLUCOMETER DEV NAME(LOC) 3E.I 2; GLUCOSE,POINT OF CARE 93 MG/DL (70-110)
[2024-11-06 08:00] VITALS: BP 124/68; PULSE 65; RESP 18; TEMP 96.1; O2SAT 100
[2024-11-06 11:50] LABS: GLUCOMETER DEV NAME(LOC) 3E.I 2; GLUCOSE,POINT OF CARE 117 MG/DL (70-110)
[2024-11-06 17:21] LABS: GLUCOMETER DEV NAME(LOC) 3E.I 2; GLUCOSE,POINT OF CARE 114 MG/DL (70-110)
[2024-11-06 22:01] LABS: GLUCOMETER DEV NAME(LOC) 3E.I 2; GLUCOSE,POINT OF CARE 149 MG/DL (70-110)
[2024-11-06 22:18] VITALS: BP 124/76; PULSE 77; RESP 18; TEMP 97.5; O2SAT 99
[2024-11-07 06:36] LABS: GLUCOMETER DEV NAME(LOC) 3E.I 2; GLUCOSE,POINT OF CARE 86 MG/DL (70-110)
[2024-11-07 08:40] VITALS: BP 121/92; PULSE 78; RESP 16; TEMP 97.4; O2SAT 99
[2024-11-07 12:11] LABS: GLUCOMETER DEV NAME(LOC) 3E.I 2; GLUCOSE,POINT OF CARE 115 MG/DL (70-110)
[2024-11-07 17:01] LABS: GLUCOMETER DEV NAME(LOC) 3E.I 2; GLUCOSE,POINT OF CARE 132 MG/DL (70-110)
[2024-11-07 20:36] LABS: GLUCOMETER DEV NAME(LOC) 3E.I 2; GLUCOSE,POINT OF CARE 121 MG/DL (70-110)
[2024-11-07 22:26] VITALS: BP 109/64; PULSE 78; RESP 18; TEMP 98.1; O2SAT 100
[2024-11-08 06:41] LABS: GLUCOMETER DEV NAME(LOC) 3E.I 2; GLUCOSE,POINT OF CARE 86 MG/DL (70-110)
[2024-11-08 08:00] VITALS: BP 124/73; PULSE 74; RESP 19; TEMP 97.7
[2024-11-08 12:00] LABS: GLUCOMETER DEV NAME(LOC) 3E.I 2; GLUCOSE,POINT OF CARE 123 MG/DL (70-110)
[2024-11-08 21:26] LABS: GLUCOMETER DEV NAME(LOC) 3E.I 2; GLUCOSE,POINT OF CARE 184 MG/DL (70-110)
[2024-11-08 22:59] VITALS: BP 130/76; PULSE 79; RESP 18; TEMP 98.1; O2SAT 98
[2024-11-09 07:00] LABS: GLUCOMETER DEV NAME(LOC) 3E.I 2; GLUCOSE,POINT OF CARE 90 MG/DL (70-110)
[2024-11-09 08:10] VITALS: BP 126/65; PULSE 78; RESP 17; TEMP 98.2; O2SAT 100
[2024-11-09 11:46] LABS: GLUCOMETER DEV NAME(LOC) 3E.I 2; GLUCOSE,POINT OF CARE 116 MG/DL (70-110)
[2024-11-09 17:00] LABS: GLUCOMETER DEV NAME(LOC) 3E.I 2; GLUCOSE,POINT OF CARE 95 MG/DL (70-110)
[2024-11-09 21:36] LABS: GLUCOMETER DEV NAME(LOC) 3E.I 2; GLUCOSE,POINT OF CARE 125 MG/DL (70-110)
[2024-11-09 23:05] VITALS: BP 104/70; PULSE 75; RESP 18; TEMP 98.2; O2SAT 95
[2024-11-10 06:26] LABS: GLUCOMETER DEV NAME(LOC) 3E.I 2; GLUCOSE,POINT OF CARE 101 MG/DL (70-110)
[2024-11-10 11:51] LABS: GLUCOMETER DEV NAME(LOC) 3E.I 2; GLUCOSE,POINT OF CARE 108 MG/DL (70-110)
[2024-11-10 16:12] VITALS: BP 122/67; PULSE 86; RESP 18; TEMP 98; O2SAT 97
[2024-11-10 17:30] LABS: GLUCOMETER DEV NAME(LOC) 3E.I 2; GLUCOSE,POINT OF CARE 105 MG/DL (70-110)
[2024-11-10 21:41] VITALS: BP 112/79; PULSE 89; RESP 18; TEMP 98.2; O2SAT 98
[2024-11-10 21:41] LABS: GLUCOMETER DEV NAME(LOC) 3E.I 2; GLUCOSE,POINT OF CARE 121 MG/DL (70-110)
[2024-11-11 06:55] LABS: GLUCOMETER DEV NAME(LOC) 3E.I 2; GLUCOSE,POINT OF CARE 96 MG/DL (70-110)
[2024-11-11 11:46] LABS: GLUCOMETER DEV NAME(LOC) 3E.I 2; GLUCOSE,POINT OF CARE 123 MG/DL (70-110)
[2024-11-11 14:04] VITALS: BP 120/68; PULSE 78; RESP 18; TEMP 97.9; O2SAT 98
[2024-11-11 17:15] LABS: GLUCOMETER DEV NAME(LOC) 3E.I 2; GLUCOSE,POINT OF CARE 128 MG/DL (70-110)
[2024-11-11 21:13] VITALS: BP 118/68; PULSE 80; RESP 18; TEMP 97.5; O2SAT 99
[2024-11-12 02:16] LABS: GLUCOMETER DEV NAME(LOC) 3E.I 2; GLUCOSE,POINT OF CARE 124 MG/DL (70-110)
[2024-11-12 06:30] LABS: GLUCOMETER DEV NAME(LOC) 3E.I 2; GLUCOSE,POINT OF CARE 97 MG/DL (70-110)
[2024-11-12 10:41] VITALS: BP 131/74; PULSE 76; RESP 18; TEMP 98
[2024-11-12 11:46] LABS: GLUCOMETER DEV NAME(LOC) 3E.I 2; GLUCOSE,POINT OF CARE 118 MG/DL (70-110)
[2024-11-12 17:21] LABS: GLUCOMETER DEV NAME(LOC) 3E.I 2; GLUCOSE,POINT OF CARE 175 MG/DL (70-110)
[2024-11-12 20:16] LABS: GLUCOMETER DEV NAME(LOC) 3E.I 2; GLUCOSE,POINT OF CARE 162 MG/DL (70-110)
[2024-11-12 23:22] VITALS: RESP 18
[2024-11-13 06:31] LABS: GLUCOMETER DEV NAME(LOC) 3E.I 2; GLUCOSE,POINT OF CARE 86 MG/DL (70-110)
[2024-11-13 12:01] LABS: GLUCOMETER DEV NAME(LOC) 3E.I 2; GLUCOSE,POINT OF CARE 110 MG/DL (70-110)
[2024-11-13 16:45] LABS: GLUCOMETER DEV NAME(LOC) 3E.I 2; GLUCOSE,POINT OF CARE 130 MG/DL (70-110)
[2024-11-13 17:10] VITALS: BP 127/70; PULSE 86; RESP 18; TEMP 97.8
[2024-11-13 18:21] VITALS: BP 118/71; PULSE 83; RESP 18; TEMP 97.9; O2SAT 98
[2024-11-13] MEDS: IBUPROFEN 400 MG TABLET PO PRN (18:23)
[2024-11-13 19:50] LABS: GLUCOMETER DEV NAME(LOC) 3EX.2; GLUCOSE,POINT OF CARE 111 MG/DL (70-110)
[2024-11-13 21:14] VITALS: RESP 18
[2024-11-14 06:50] LABS: GLUCOMETER DEV NAME(LOC) 3E.I 2; GLUCOSE,POINT OF CARE 100 MG/DL (70-110)
[2024-11-14 08:05] VITALS: BP 123/78; PULSE 99; RESP 18; TEMP 97.8; O2SAT 100
[2024-11-14 11:36] LABS: GLUCOMETER DEV NAME(LOC) 3E.I 2; GLUCOSE,POINT OF CARE 132 MG/DL (70-110)
[2024-11-14 17:01] LABS: GLUCOMETER DEV NAME(LOC) 3E.I 2; GLUCOSE,POINT OF CARE 113 MG/DL (70-110)
[2024-11-14] MEDS ORDERED: MELA3TAB89 PO (17:47)
[2024-11-14] MEDS ORDERED: CALC-1271 PO (18:43)
[2024-11-14] MEDS ORDERED: ROSU20TA98 PO (18:43)
[2024-11-15] MEDS ORDERED: QUET25TA36 PO (08:13)
[2024-11-15] MEDS ORDERED: MIRT-89 PO (08:13)
[2024-11-15] MEDS ORDERED: MELA3TAB89 PO (08:13)
== END 2024-11-14 18:20 | disposition home or self-care (01) | DRG 885 ==
LOC: EMS 23:40 → 3EX 10-23 03:18 → UNDOADMIN 10-23 03:18 → 3EX 10-30 12:00
PROVIDERS: ADMIT Psychiatry & Neurology Child & Adolescent Psychiatry; ATTEND Psychiatry & Neurology Child & Adolescent Psychiatry
PROC: GZ56ZZZ Individual Psychotherapy, Supportive (ICD-10-PCS; 2024-10-23)
PROC: GZ58ZZZ Individual Psychotherapy, Cognitive-Behavioral (ICD-10-PCS; 2024-10-23)
PROC: GZ52ZZZ Individual Psychotherapy, Cognitive (ICD-10-PCS; 2024-10-25)
PROC: GZHZZZZ Group Psychotherapy (ICD-10-PCS; principal; 2024-10-29)
DX: F25.1 Schizoaffective disorder, depressive type (principal); Z59.00 Homelessness unspecified; F03.90 Unspecified dementia, unspecified severity, without behavioral disturbance, psychotic disturbance, mood disturbance, and anxiety; Z20.822 Contact with and (suspected) exposure to COVID-19; E11.9 Type 2 diabetes mellitus without complications; I10 Essential (primary) hypertension; E78.5 Hyperlipidemia, unspecified; G47.00 Insomnia, unspecified; M81.0 Age-related osteoporosis without current pathological fracture; D64.9 Anemia, unspecified
CPT/HCPCS: 80048; 80053; 80061; 80307; 81003; 82962; 83036; 84436; 84443; 85025; 99285; G0378; G0480

== ENCOUNTER 2025-01-15 16:54 | Emergency (ER) | payer MEDICARE, MEDICAID ==
[~2025-01-15] VITALS: Ht 167.6 cm; Wt 63.6 kg
[~2025-01-15 16:54] MED LIST changes: +DONE-52 PO; -MECL-134 PO; -MELA1TAB28 PO; +MELA3TAB89 PO; +MIRT-89 PO; -MIRT-92 PO; -MULT-1336 PO; -TERA5CAP PO
[2025-01-15 17:13] VITALS: TEMP 98.3
[2025-01-15 17:20] VITALS: BP 120/77; PULSE 70; RESP 15; O2SAT 97
[2025-01-15 19:17] LABS: PLATELET COUNT (AUTO) 171 K/uL (150-450); RED BLOOD CELL COUNT(AUTO) 4.42 MIL/uL (4.50-5.90); RED CELL DISTRIBUTION WIDTH 13.6 % (11.5-14.5); WHITE BLOOD COUNT (AUTO) 3.7 K/uL (4.5-11.0)
[2025-01-15 19:25] LABS: CALCIUM, TOTAL 8.6 mg/dL (8.8-10.5); CREATININE 0.55 mg/dL (0.60-1.30); GLOMERULAR FILTR. RATE CALC > 60 mL/min (>60); GLUCOSE,RANDOM 87 mg/dL (70-110); SODIUM SERUM 143 mmol/L (136-145); UREA NITROGEN, BLOOD 10 mg/dL (7-18)
[2025-01-15 19:41] LABS: COVID AG,FIA SOURCE NASAL SWAB
[2025-01-15 20:15] LABS: SARS-COV2 (COVID) ANTIGEN,FIA Negative (Negative)
[2025-01-15 20:42] LABS: APPEARANCE,URINE CLEAR (CLEAR); GLUCOSE, URINE (UA) NEGATIVE (NEGATIVE); LEUKOCYTE ESTERASE ,URINE NEGATIVE (NEGATIVE); NITRATE,URINE NEGATIVE (NEGATIVE); OCCULT BLOOD,URINE NEGATIVE (NEGATIVE); PH,URINE DRUG SCREEN 7.0 (5.0-8.0); SPECIFIC GRAVITIY, URINE 1.009 (1.003-1.030)
[2025-01-15 20:48] LABS: AMPHET/METH SCREEN,URINE NEGATIVE (NEGATIVE); BARBITURATE SCREEN, URINE NEGATIVE (NEGATIVE); CANNABINOID SCREEN,URINE NEGATIVE (NEGATIVE); COCAINE SCREEN,URINE NEGATIVE (NEGATIVE); METHADONE SCREEN, URINE NEGATIVE (NEGATIVE)
[2025-01-15 20:51] LABS: ALCOHOL, URINE DRUG SCREEN NEGATIVE (NEGATIVE)
[2025-01-15] MEDS ORDERED: TRAZ-184 PO (21:51)
== END 2025-01-15 22:29 | disposition home or self-care (01) ==
LOC: EMS 16:54
DX: G47.00 Insomnia, unspecified (principal); E11.9 Type 2 diabetes mellitus without complications; F03.918 Unspecified dementia, unspecified severity, with other behavioral disturbance; F25.9 Schizoaffective disorder, unspecified; F32.A Depression, unspecified; I10 Essential (primary) hypertension; Z79.899 Other long term (current) drug therapy; Z20.822 Contact with and (suspected) exposure to COVID-19
CPT/HCPCS: 80048; 80307; 81003; 85025; 99284